=== PATIENT | female | born 1960 | race Caucasian/White ===

== ENCOUNTER 2016-05-30 06:27 | Emergency (ER) | payer MEDICARE, MEDICAID ==
--- NOTE | 2016-05-30 07:28 | ED Physician Chart ---
Chief Complaint/HPI - Patient Information Date Seen:: 05/30/16 Time Seen:: 06:35 Chief Complaint:: sore throat History of Present Illness:: 56-year-old female history of hypertension and HIV, complains of acute, constant , severe, 9 out of 10 at worst, aching, worse with swallowing, non-radiating, sore throat since Monday (2.5 days). Allergies:: Allergies Allergy/AdvReac Type Severity Reaction Status Date / Time No Known Allergies Allergy Verified 05/30/16 06:46 Vitals:: Vital Signs - 8 hr 05/30/16 06:30 Temp 98.2 F HR 72 RR 16 BP 128/83 O2 Sat % 97 Historian:: Patient Review:: Nurse's Note Reviewed Review of Systems - Review of Systems Other: Complete system review otherwise unremarkable except as noted in history of present illness. Family Medical History - Family Member Mother History Unknown: Yes Physical Exam - Physical Examination Other:: INITIAL VITAL SIGNS: Reviewed by me GENERAL: Alert and interactive. No acute distress HEAD: Head is normocephalic and atraumatic EYES: EOMI. PERRL. No scleral icterus. No conjunctival injection ENT: Throat is erythematous, prior tonsillectomy noted, slight exudate throughout soft palate and pharynx.. NECK: Supple. Bilateral cervical adenopathy greater on the right than left. Full range of motion RESPIRATORY: No tachypnea. Clear breath sounds bilaterally. No wheezing, rales, or rhonchi CV: Regular rate and rhythm. No murmurs, rubs, or gallops ABDOMEN: Soft, non-distended, non-tender. No guarding. No rebound. No masses. EXTREMITIES: No deformity. No cyanosis. No edema. SKIN: Warm and dry. No obvious rashes. NEUROLOGIC: Alert and oriented. Face is symmetric. Speech is normal. Moves all extremities equally. Motor and sensory distally intact. ED Septic Shock - . Is Septic Shock (SBP<90, OR Lactate>4 mmol\L) present?: No - <6hrs of presentation: Vital Signs: Vital Signs - 8 hr 05/30/16 06:30 Temp 98.2 F HR 72 RR 16 BP 128/83 O2 Sat % 97 Reassessment (Disposition) - Reassessment Reassessment:: Patient has acute sore throat due to acute pharyngitis. She did have tonsillectomy as a young lady. Prescribing amoxicillin and ibuprofen. Follow- up PCP 1-2 days. Return to ER precautions given. Patient understands and agrees the plan. Reassessment Condition:: Improved - Diagnosis Diagnosis:: Acute throat pain due to acute pharyngitis, unspecified Hypertension HIV - Aftercare/Follow up Instructions Aftercare/Follow-Up Instructions:: Counseled pt regarding lab results/diagnosis & need follow up, Refer to Discharge Instructions Medication Prescribed:: Amoxicillin Ibuprofen - Patient Disposition Discharge/Transfer:: Home Time:: 07:27 Condition at Disposition:: Improved ED Discharge Plan - Patient Disposition Admit/Discharge/Transfer: PT DISCHARGED HOME Condition at Disposition: Improved Instructions: Viral and Bacterial Pharyngitis, [id number]
== END 2016-05-30 07:25 | disposition home or self-care (01) ==
LOC: ER 06:27
DX: J02.9 Acute pharyngitis, unspecified (principal); I10 Essential (primary) hypertension
CPT/HCPCS: Z7502